=== PATIENT | male | born 1965 | race Caucasian/White ===

== ENCOUNTER 2022-06-21 17:14 | Emergency (ER) | payer OTHER ==
[2022-06-21] MEDS ORDERED: Proparacaine 0.5% Ophth Soln 15 ML Bottle EYERT ONE (17:46)
[2022-06-21] MEDS ORDERED: Acetaminophen/oxyCODONE 325-10 MG Tab PO ONE (17:46)
[2022-06-21] MEDS ORDERED: Erythromycin Base 0.5% Ophth Oint 1 GM Tube EYEBOTH ONE (17:47)
== END 2022-06-21 18:11 | disposition home or self-care (01) ==
LOC: JP.ED 17:14
DX: S05.31XA Ocular laceration without prolapse or loss of intraocular tissue, right eye, initial encounter (principal); Z88.0 Allergy status to penicillin; W22.09XA Striking against other stationary object, initial encounter
CPT/HCPCS: 99283; A9270

== ENCOUNTER 2022-08-20 15:25 | Emergency (ER) | payer MEDICAID ==
[2022-08-20] MEDS ORDERED: Sodium Chloride 0.9% 10 ML Syringe FLUSH PRN (15:34)
[2022-08-20 15:52] LABS: APPEARANCE,URINE CLEAR (CLEAR); BILIRUBIN,URINE NEGATIVE (NEGATIVE); COLOR,URINE YELLOW (YELLOW); GLUCOSE,URINE NEGATIVE (NEGATIVE); KETONES,URINE NEGATIVE (NEGATIVE); LEUKOCYTE ESTERASE,URINE NEGATIVE (NEGATIVE); NITRITE,URINE NEGATIVE (NEGATIVE); OCCULT BLOOD,URINE MODERATE (NEGATIVE); PH,URINE 5.5 (5.0-8.0); PROTEIN,URINE 30 mg/dL (NEGATIVE); UROBILINOGEN,URINE 0.2 EU/dL (0.2-1.0)
[2022-08-20] MEDS ORDERED: Sodium Chloride 0.9% 1,000 ML IV ONE (15:52)
[2022-08-20] MEDS ORDERED: Ketorolac 15 MG/ML SDV IVPUSH ONE (15:52)
[2022-08-20 15:57] LABS: RBC,URINE 20-30 (0-5); WBC,URINE 0-5 (0-5)
[2022-08-20 15:58] LABS: AMORPHOUS SEDIMENT,URINE NOT SEEN; BACTERIA,URINE NOT SEEN; EPITHELIAL CELLS,URINE NOT SEEN; MUCUS,URINE NOT SEEN
[2022-08-20] MEDS ORDERED: Ondansetron 4 MG/2 ML SDV IVPUSH ONE (16:05)
[2022-08-20] MEDS ORDERED: HYDROmorphone 1 MG/ML Syringe IVPUSH ONE (16:05)
[2022-08-20] MEDS ORDERED: HYDROmorphone 0.5 MG/0.5 ML Syringe IVPUSH ONE (16:34)
[2022-08-20] MEDS ORDERED: Metoclopramide 10 MG/2 ML SDV IVPUSH ONE (16:34)
[2022-08-20] MEDS ORDERED: Tamsulosin 0.4 MG Cap.ER PO ONE (16:59)
[2022-08-20] MEDS ORDERED: Hydrocortisone Sodium Succinate 100 MG/2 ML SDV IVPUSH ONE (17:10)
[2022-08-20] MEDS ORDERED: droPERidol 5 MG/2 ML SDV IVPUSH ONE (17:11)
== END 2022-08-20 18:15 | disposition home or self-care (01) ==
LOC: JP.ED 15:25
DX: N13.2 Hydronephrosis with renal and ureteral calculous obstruction (principal); N40.0 Benign prostatic hyperplasia without lower urinary tract symptoms; R91.1 Solitary pulmonary nodule; Z88.0 Allergy status to penicillin
CPT/HCPCS: 74176; 81001; 96361; 96374; 96375; 99284; A9270; J1170; J1790; J1885; J2405; J2765; J3490; J7030